=== PATIENT | female | born 1930 | race Caucasian/White ===

== ENCOUNTER 2016-05-27 04:12 | Inpatient (IN) | payer MEDICARE ==
[2016-05-27] VITALS (7 sets, daily range): BP systolic 114–175; BP diastolic 61–85; PULSE 78–97; RESP 18–21; TEMP 97.3–98.6; O2SAT 91–99
[~2016-05-27] VITALS: Ht 167.6 cm; Wt 95.3 kg
[~2016-05-27 04:12] MED LIST: ACET325 PO; ALPR.25 PO; AMBI5TAB PO; ESTR1TAB PO; HYDR-3533 PO; LOSA25TA31 PO
[2016-05-27] MEDS ORDERED: LIDOCAINE HCL 1% PF 30 ML VIAL INFIL ONE (04:30)
[2016-05-27] MEDS ORDERED: TYLETAB34 PO (04:37)
[2016-05-27] MEDS ORDERED: ESTR0.5T PO (04:37)
[2016-05-27] MEDS ORDERED: ALPR.25 PO (04:37)
[2016-05-27] MEDS ORDERED: LOSA25TA PO (04:37)
[2016-05-27] MEDS ORDERED: AMBI10TA PO (04:37)
--- NOTE | 2016-05-27 04:41 | PD ---
HPI Chief Complaint: Injury Time Seen by Provider: 04:17 Travel History International Travel<30 days: No Contact w/Intl Traveler<30days: No Traveled to known affect area: No History of Present Illness HPI The patient is a 86-year-old female who presents to the emergency department for right knee pain. The patient states she developed right knee pain on Monday. She now notes the pain is swollen, limited range of motion, worse with weightbearing, and minimally alleviated at rest. She does state there is swollen and the pain radiates from the medial aspect the lateral aspect of the knee and into the posterior aspect of the knee. She denies any trauma to the affected area. She notes mild redness and warmth of the affected area and EMS stated the patient had a low-grade fever of 100.2 prior to arrival. The patient denies any history of septic joint and denies any history of gout or pseudogout. She does note nausea and vomiting secondary to pain associated with the knee with ambulation. The patient lives at home with her . Symptoms are moderate, worsen movement, and slightly alleviated at rest. PFSH Past Medical History Anxiety: Yes Cancer: Yes (SKIN) Cardiovascular Problems: No Diabetes: No Diminished Hearing: No Endocrine: No Gastrointestinal Disorders: Yes (GERD) Genitourinary: No Hepatitis: Yes (JAUNDICE AT 10) Hiatal Hernia: Yes Hypertension: Yes Immune Disorder: No Musculoskeletal: Yes (ARTHRITIS) Neurologic: No Psychiatric: Yes (CLAUSTRAPHOBIA) Reproductive: No Respiratory: No Thyroid Disease: No Past Surgical History AICD: No Eye Surgery: Yes (BETTE. CATARACT EXTRACT.) Gynecologic Surgery: Yes (TAHBSO) Hysterectomy: Yes Joint Replacement: Yes (LEFT KNEE) Pacemaker: No Other Surgery: Yes (RIGHT SHOULDER) Social History Alcohol Use: Yes (OCC) Tobacco Use: No Substance Use: No Allergies-Medications (Allergen,Severity, Reaction): Uncoded Allergies: STATINS (Allergy, Intermediate, MUSCLE ACHES, 11/14/08) Reported Meds & Prescriptions Reported Meds & Active Scripts Active Reported Tylenol-Codeine #3 (Acetaminophen-Codeine) 300-30 mg Tab 1 Tab PO Q4H PRN Xanax (Alprazolam) 0.25 Mg Tab 0.25 Mg PO DAILY PRN Estradiol 0.5 Mg Tab 0.5 Mg PO DAILY Ambien (Zolpidem Tartrate) 10 Mg Tab 10 Mg PO HS PRN Losartan (Losartan Potassium) 25 Mg Tab 25 Mg PO DAILY Review of Systems Except as stated in HPI: all other systems reviewed are Neg General / Constitutional: No: Fever Cardiovascular: No: Chest Pain or Discomfort Respiratory: No: Shortness of Breath Gastrointestinal: Positive: Nausea, Vomiting, No: Abdominal Pain Musculoskeletal: Positive: Limited ROM, Edema, Pain Skin: No Rash Neurologic: No: Paresthesia, Sensory Disturbance Physical Exam Narrative GENERAL: Awake, alert, pleasant 86-year-old female who appears her stated age and is in no acute respiratory distress. SKIN: Warm and dry. HEAD: Atraumatic. Normocephalic. EYES: Pupils equal and round. No scleral icterus. No injection or drainage. ENT: No nasal bleeding or discharge. Mucous membranes pink and moist. NECK: Trachea midline. No JVD. CARDIOVASCULAR: Regular rate and rhythm. No murmur appreciated. RESPIRATORY: No accessory muscle use. Clear to auscultation. Breath sounds equal bilaterally. GASTROINTESTINAL: Abdomen soft, non-tender, nondistended. No rebound tenderness. MUSCULOSKELETAL: Left knee has well-healed scar. The right knee has an obvious effusion. Limited range of motion secondary to pain. Positive distal pulses. Slightly warm, but no obvious erythema. NEUROLOGICAL: Awake and alert. No obvious cranial nerve deficits. Motor grossly within normal limits. Normal speech. PSYCHIATRIC: Appropriate mood and affect; insight and judgment normal. Data Data Last Documented VS Vital Signs Date Time Temp Pulse Resp B/P Pulse Ox O2 Delivery O2 Flow Rate FiO2 05/27/16 04:22 96 18 96 Nasal Cannula 2 05/27/16 04:18 97.7 175/75 Orders Ed Poc Ultrasound (05/27/16 04:18) Lidocaine Pf 1% Inj (Xylocaine-Mpf 1% In (05/27/16 04:30) Complete Blood Count With Diff (05/27/16 04:33) Comprehensive Metabolic Panel (05/27/16 04:33) Lactic Acid (05/27/16 04:33) Blood Culture (05/27/16 04:33) Knee, Ltd (1 Or 2vws) (05/27/16 ) Synovial Fluid Crystals (05/27/16 04:33) Synovial Fluid Total Protein (05/27/16 04:33) Synovial Fl Cell Count + Diff (05/27/16 04:33) Fluid Culture And Gram Stain (05/27/16 04:33) Ondansetron Inj (Zofran Inj) (05/27/16 04:45) Morphine Inj (Morphine Inj) (05/27/16 04:45) Piperacil-Tazo 4.5 Gm Premix (Zosyn 4.5 (05/27/16 05:45) Vancomycin Inj (Vancomycin Inj) (05/27/16 05:45) Sodium Chlor 0.9% 1000 Ml Inj (Ns 1000 M (05/27/16 05:45) Admit Order (Ed Use Only) (05/27/16 06:11) Labs Laboratory Tests Test 05/27/16 05/27/16 04:30 04:45 Synovial Fluid Color STRAW Synovial Fluid Appearance MARKED Synovial Fluid WBC 920647 /MM3 Synovial Fluid RBC 41579 /MM3 Synovial Fluid Crystals NONE White Blood Count 14.6 TH/MM3 Red Blood Count 4.68 MIL/MM3 Hemoglobin 14.7 GM/DL Hematocrit 42.4 % Mean Corpuscular Volume 90.8 FL Mean Corpuscular Hemoglobin 31.3 PG Mean Corpuscular Hemoglobin 34.5 % Concent Red Cell Distribution Width 13.3 % Platelet Count 195 TH/MM3 Mean Platelet Volume 8.9 FL Neutrophils (%) (Auto) 82.4 % Lymphocytes (%) (Auto) 4.0 % Monocytes (%) (Auto) 13.5 % Eosinophils (%) (Auto) 0.0 % Basophils (%) (Auto) 0.1 % Neutrophils # (Auto) 12.0 TH/MM3 Lymphocytes # (Auto) 0.6 TH/MM3 Monocytes # (Auto) 2.0 TH/MM3 Eosinophils # (Auto) 0.0 TH/MM3 Basophils # (Auto) 0.0 TH/MM3 CBC Comment DIFF FINAL Differential Comment Sodium Level 137 MEQ/L Potassium Level 3.8 MEQ/L Chloride Level 102 MEQ/L Carbon Dioxide Level 26.5 MEQ/L Anion Gap 9 MEQ/L Blood Urea Nitrogen 16 MG/DL Creatinine 1.02 MG/DL Estimat Glomerular Filtration 52 ML/MIN Rate Random Glucose 176 MG/DL Lactic Acid Level 2.5 mmol/L Calcium Level 8.5 MG/DL Total Bilirubin 0.7 MG/DL Aspartate Amino Transf 10 U/L (AST/SGOT) Alanine Aminotransferase 19 U/L (ALT/SGPT) Alkaline Phosphatase 61 U/L Total Protein 6.9 GM/DL Albumin 3.3 GM/DL MDM Medical Decision Making Medical Screen Exam Complete: Yes Emergency Medical Condition: Yes Medical Record Reviewed: Yes Interpretation(s) Laboratory Tests Test 05/27/16 05/27/16 04:30 04:45 Synovial Fluid Color STRAW Synovial Fluid Appearance MARKED Synovial Fluid WBC 057666 /MM3 Synovial Fluid RBC 91834 /MM3 Synovial Fluid Crystals NONE White Blood Count 14.6 TH/MM3 Red Blood Count 4.68 MIL/MM3 Hemoglobin 14.7 GM/DL Hematocrit 42.4 % Mean Corpuscular Volume 90.8 FL Mean Corpuscular Hemoglobin 31.3 PG Mean Corpuscular Hemoglobin 34.5 % Concent Red Cell Distribution Width 13.3 % Platelet Count 195 TH/MM3 Mean Platelet Volume 8.9 FL Neutrophils (%) (Auto) 82.4 % Lymphocytes (%) (Auto) 4.0 % Monocytes (%) (Auto) 13.5 % Eosinophils (%) (Auto) 0.0 % Basophils (%) (Auto) 0.1 % Neutrophils # (Auto) 12.0 TH/MM3 Lymphocytes # (Auto) 0.6 TH/MM3 Monocytes # (Auto) 2.0 TH/MM3 Eosinophils # (Auto) 0.0 TH/MM3 Basophils # (Auto) 0.0 TH/MM3 CBC Comment DIFF FINAL Differential Comment Sodium Level 137 MEQ/L Potassium Level 3.8 MEQ/L Chloride Level 102 MEQ/L Carbon Dioxide Level 26.5 MEQ/L Anion Gap 9 MEQ/L Blood Urea Nitrogen 16 MG/DL Creatinine 1.02 MG/DL Estimat Glomerular Filtration 52 ML/MIN Rate Random Glucose 176 MG/DL Lactic Acid Level 2.5 mmol/L Calcium Level 8.5 MG/DL Total Bilirubin 0.7 MG/DL Aspartate Amino Transf 10 U/L (AST/SGOT) Alanine Aminotransferase 19 U/L (ALT/SGPT) Alkaline Phosphatase 61 U/L Total Protein 6.9 GM/DL Albumin 3.3 GM/DL Differential Diagnosis Differential diagnosis includes gout, pseudogout, knee effusion, hemarthrosis, septic joint, cellulitis, viral infection, fracture with effusion. Narrative Course IV was established, labs are drawn and sent, and the patient was placed on cardiac telemetry monitoring and continuous pulse ox imaging monitoring. Bedside ultrasound was performed which reveals a right knee effusion. The right knee effusion was drained, arthrocentesis, under ultrasound guidance. 10 cc of thick yellow fluid was removed. The patient tolerated the procedure there was no obvious complications. The fluid was sent off for analysis of cell ,, Gram stain, crystals, and protein. Culture was also obtained. 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 X-ray was obtained of the right knee. The patient states the orthopedic surgeon she saw for her left knee surgery was Dr. Reece. The patient's white count was 186,600, marked fluid, and no crystals visible. Therefore, a since septic knee. Patient's white count is elevated greater than 14 and lactic acid 2.5. Patient was administered IV fluids, Zosyn, vancomycin. The patient's primary physician is Dr. Mega Hannah, therefore, [facility]. Procedures Procedure Narrative An ultrasound-guided arthrocentesis of the right knee was performed using a linear probe. The area was draped and prepped, cleaned with Betadine, anesthetized 1% lidocaine, and then drained using an 18-gauge needle. 10 cc of thick yellow fluid was removed from the joint. The patient tolerated the procedure without difficulty and there was no obvious complications. Fluid was sent off for analysis. Sepsis Criteria SIRS Criteria (2 or more): Heart rate over 90, WBC > 93820, < 4000 or > 10% bands Sepsis Criteria (SIRS+source): Infect source susp/known Severe Sepsis (+one): Lactate >2 Physician Communication Physician Communication I discussed the patient with Dr. Franz who agrees with admission to Dr. Maria. Diagnosis Primary Impression: Septic joint of right knee joint Qualified Code: M00.9 - Pyogenic arthritis of right knee joint, due to unspecified organism Additional Impression: Sepsis Qualified Code: A41.9 - Sepsis, due to unspecified organism Condition: Stable Abelino Toro MD May 27, 2016 04:41
[2016-05-27] MEDS ORDERED: ONDANSETRON HCL 4 MG/2 ML VIAL IV PUSH ONE (04:45)
[2016-05-27] MEDS ORDERED: MORPHINE SULFATE 4 MG/ML INJ IV PUSH ONE (04:45)
[2016-05-27 05:07] LABS: BASOPHIL % 0.1 % (0.0-2.0); HEMATOCRIT 42.4 % (35.0-46.0); HEMO FLAGS DIFF FINAL; LYMPHOCYTE # 0.6 TH/MM3 (1.0-4.8); MEAN CELL VOLUME 90.8 FL (80.0-100.0); MEAN CORPUSCULAR HEMOGLOBIN 31.3 PG (27.0-34.0); MEAN CORPUSCULAR HGB CONC 34.5 % (32.0-36.0); MONO % 13.5 % (0.0-8.0); NEUT % 82.4 % (16.0-70.0); PLATELET COUNT 195 TH/MM3 (150-450); RED BLOOD COUNT 4.68 MIL/MM3 (4.00-5.30); RED CELL DISTRIBUTION WIDTH 13.3 % (11.6-17.2); WHITE BLOOD COUNT 14.6 TH/MM3 (4.0-11.0)
[2016-05-27 05:24] LABS: ALT (GPT) 19 U/L (10-53); ANION GAP 9 MEQ/L (5-15); AST (GOT) 10 U/L (15-37); BICARBONATE 26.5 MEQ/L (21.0-32.0); BLOOD UREA NITROGEN 16 MG/DL (7-18); CHLORIDE 102 MEQ/L (98-107); GLOMERULAR FILTRATION RATE 52 ML/MIN (>89); POTASSIUM 3.8 MEQ/L (3.5-5.1); SODIUM (NA) 137 MEQ/L (136-145)
[2016-05-27 05:26] LABS: ALKALINE PHOSPHATASE 61 U/L (45-117); TOTAL BILIRUBIN ADULT 0.7 MG/DL (0.2-1.0)
[2016-05-27 05:31] LABS: WBC, SYNOVIAL FLUID 186000 /MM3 (0-200)
[2016-05-27] MEDS ORDERED: SODIUM CHLOR 0.9% 1000 ML INJ 1,000 ML IV ONE (05:45)
[2016-05-27] MEDS ORDERED: PIPERACIL-TAZO 4.5 GM PREMIX 100 ML IV ONE (05:45)
[2016-05-27] MEDS ORDERED: VANCOMYCIN INJ 1,000 MG in SODIUM CHLOR 0.9% 250 ML INJ 250 ML IV ONE (05:45)
--- NOTE | 2016-05-27 05:59 | RADRPT ---
EXAM DATE/TIME: 05/27/2016 04:38 [facility] COMPARISON: No previous studies available for comparison. INDICATIONS : Patient complains of right anterior knee pain. MEDICAL HISTORY : None. SURGICAL HISTORY : None. ENCOUNTER: Initial ACUITY: 1 week PAIN SCORE: 10/10 LOCATION: Right Knee FINDINGS: No definite fractures, dislocations, lytic, or sclerotic lesions are seen. Small joint effusion is se en with side tricompartment osteoarthritis. CONCLUSION: Osteoarthritis and small joint effusion. Jacqueline Rhoades MD on May 27, 2016 at 5:57 Board Certified Radiologist. This report was verified electronically.
[2016-05-27] MEDS ORDERED: PIPERACIL-TAZO 3.375 GM PREMIX 50 ML IV SCH (06:15)
[2016-05-27] MEDS ORDERED: SODIUM CHLORIDE 0.9% FLUSH 5 ML FLUSH FLUSH PRN (06:15)
[2016-05-27] MEDS ORDERED: ONDANSETRON HCL 4 MG/2 ML VIAL IVP PRN (06:15)
[2016-05-27] MEDS ORDERED: NALOXONE HCL 0.4 MG/ML AMP IV PRN (06:15)
[2016-05-27] MEDS ORDERED: ACETAMINOPHEN 325 MG TAB PO PRN (06:15)
[2016-05-27] MEDS: ENOXAPARIN SODIUM 40 MG/0.4 ML SYRINGE SQ SCH (06:28)
[2016-05-27] MEDS: SODIUM CHLORIDE 0.9% FLUSH 5 ML FLUSH FLUSH SCH ×2 (08:28→22:13)
[2016-05-27] MEDS ORDERED: PILL SPLITTER OTHER PRN (08:30)
--- NOTE | 2016-05-27 09:04 | MH ---
cc: LEATHA MOISE,MAYELIN Jara MD DATE OF ADMISSION: 05/27/2016 DATE OF 1930 CHIEF COMPLAINT Severe pain right knee, nausea, fever. TRAVEL HISTORY None in the last 30 days. HISTORY OF PRESENT ILLNESS This is a pleasant 86 year-old white female who presented to the ER with severe right knee pain. She states that she has been in her usual state of health. She usually ambulates without any assistance, but Monday began noting a sharp stabbing pain to the right knee. She states she has some mild redness, swelling and warmth to the touch. The patient did have a low-grade fever of 100.2 on arrival to the emergency room. She states that within 24-hours of the knee pain beginning, she was unable to bear weight when ambulating. The patient states the pain is worse with movement and with ambulation, but she does get some slight relief when elevated. She states the pain radiates to the medial aspect of the knee from the lateral aspect and goes around to the posterior aspect of her knee. The patient has had some nausea and vomiting in the past 24-hours. She has experienced some mild shortness of breath with exertion since Monday, but states that this seems to be related to her trying to move around in her home. The patient states her appetite is good. She has had no acute weight gain or weight loss in the past year. She denies any headache. Denies any dizziness or syncope. PAST MEDICAL HISTORY 1. Hypertension 2. Hiatal hernia 3. GERD 4. Anxiety 5. Arthritis 6. Claustrophobia 7. Hepatitis (jaundice at 11) 8. Skin cancer PAST SURGICAL HISTORY 1. Bilateral cataracts 2. Total abdominal hysterectomy 3. Joint replacement left knee 4. Right shoulder surgery ALLERGIES STATINS SOCIAL HISTORY No tobacco use. Occasional wine (alcohol use). No illicit drugs. The patient is and currently lives in the home with her . HOME MEDICATIONS 1. Losartan 25 mg p.o. daily 2. Ambien 10 mg at night as needed for insomnia 3. Xanax 0.25 mg p.o. daily as needed for anxiety 4. Estradiol 0.5 mg p.o. daily 5. Acetaminophen/Tylenol 300/30 mg tab one tab every four hours as needed for pain REVIEW OF SYSTEMS A 12-point review was obtained with the positives and negatives initiated in the HPI. Please note, positive pain and myalgias with musculoskeletal. FAMILY HISTORY Heart disease PHYSICAL EXAM GENERAL: This is a pleasant 86 year-old female who is alert and oriented times four resting in the bed. She appears to be her stated age and answers questions appropriately. SKIN: Her skin is slightly pale, but warm and dry. HEAD, EYES, EARS, NOSE, AND THROAT: Atraumatic, normocephalic. Pupils are 2 mm and equal. She has no scleral icterus and no drainage. NECK: Supple. Her mucous membranes are pink and moist. She has no nasal discharge. CARDIOVASCULAR: Heart rate is regular in rate and rhythm. She has no murmurs, rubs or gallops appreciated. No pedal edema. RESPIRATORY: Lungs are essentially clear anteriorly and posteriorly with no wheezes, rales or rhonchi. Breath sounds are equal bilateral. GASTROINTESTINAL: Abdomen is obese, soft, nontender and nondistended. MUSCULOSKELETAL: She moves all extremities with purpose. Right knee is tender. Mild swelling noted especially on the lateral aspect. She does have limited motion secondary to pain in that right lower leg. Left knee moves with purpose and has a healed scar. Pulses are 2+/4+ bilateral pedal. Right knee is warm to touch. NEUROLOGIC: The patient is alert and oriented times four, a good historian. No obvious cranial nerve deficits. 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 Speech is clear and normal. PSYCHIATRIC: No acute signs of anxiety, appropriate mood and affect. Insight and judgment normal. LAB DATA Abnormal, includes a white count of 14.6, neutrophil percentage 82.4, lymphocyte auto 4, mono 13.5. Normals include hemoglobin of 14.7, hematocrit of 42.4, platelet count 195, RBC count 4.68. Chemistry includes a sodium of 137, potassium 3.8, chloride 102, carbon dioxide 26.5, anion gap 9, BUN 16, creatinine 1.02, GFR 52, glucose 176, lactic acid 2.5, calcium 8.5, total bilirubin 0.7, AST is 10, albumin 3.3. Synovium fluid from the right knee is straw colored with high WBC counts 703025, elevated RBC count 45038, elevated neutrophils 98, no crystals, 2 monocytes, no lymphocytes. Total protein is pending. Right imaging shows osteoarthritis and a small joint effusion in the right knee. ASSESSMENT AND PLAN 1. Septic joint of right knee joint including pyrogenic arthritis unknown organism. 2. Sepsis 3. Leukocytosis 4. Lactic acidosis 5. Hypertension 6. GERD 7. Anxiety disorder Our plan is to admit for observation. The patient has been started on piperacillin and vancomycin IV antibiotics. Vital signs will be q4. Due to elevated blood sugar, we will do Accu-Chek's ac and hs to monitor. The patient states that she is not a diabetic and this could be secondary to possible infection. We will monitor the patient on Telemetry, monitor her I&O's, give her a regular diet, monitor her lab levels which includes a BMP and CBC for the morning. DVT prophylaxis with Lovenox. Protonix added for GERD and her hiatal hernia even though she denies any symptoms. This will be prophylactic. I will discuss this case with Dr. Guerrero for any further orders. The patient is a full code, full aggressive care per her request. We will follow. Dictated by LILLIAN Mattson MD NICOLAS Berg/ABNER /7:53 AM /9:03 AM PT is seen & Examined d/w PT d/w Clary see H&P see Orders ID consult appreciated will f/u Mayelin Guerrero MD May 27, 2016 18:25 MTDD
[2016-05-27] MEDS: PIPERACIL-TAZO 3.375 GM PREMIX 50 ML IV SCH ×3 (11:42→23:43)
[2016-05-27] MEDS: LOSARTAN 25 MG TAB PO SCH (11:42)
[2016-05-27] MEDS: PANTOPRAZOLE SOD 40 MG DELAYED RELEASE TAB PO SCH (11:42)
[2016-05-27] MEDS: ESTRADIOL 1 MG TAB PO SCH (11:58)
--- NOTE | 2016-05-27 13:42 | HHI.IDPN ---
Note Infectious Disease Note ID consult dictated. Septic arthritis r. knee. Will follow cultures and adjust antibiotics: Continue Vancomycin and Zosyn. Vital Signs Date Time Temp Pulse Resp B/P Pulse Ox O2 Delivery O2 Flow Rate FiO2 05/27/16 07:31 94 Nasal Cannula 2 05/27/16 07:31 98.6 84 21 146/66 94 Nasal Cannula 2 05/27/16 04:22 96 18 96 Nasal Cannula 2 05/27/16 04:18 97.7 97 18 175/75 93 Laboratory Tests Test 05/27/16 05/27/16 04:30 04:45 Synovial Fluid Color STRAW Synovial Fluid Appearance MARKED Synovial Fluid WBC 495541 /MM3 Synovial Fluid RBC 86938 /MM3 Synovial Fluid Neutrophils 98 % Synovial Fluid Lymphocytes 0 % Synovial Fluid Monocytes 2 % Synovial Fluid Crystals NONE White Blood Count 14.6 TH/MM3 Red Blood Count 4.68 MIL/MM3 Hemoglobin 14.7 GM/DL Hematocrit 42.4 % Mean Corpuscular Volume 90.8 FL Mean Corpuscular Hemoglobin 31.3 PG Mean Corpuscular Hemoglobin 34.5 % Concent Red Cell Distribution Width 13.3 % Platelet Count 195 TH/MM3 Mean Platelet Volume 8.9 FL Neutrophils (%) (Auto) 82.4 % Lymphocytes (%) (Auto) 4.0 % Monocytes (%) (Auto) 13.5 % Eosinophils (%) (Auto) 0.0 % Basophils (%) (Auto) 0.1 % Neutrophils # (Auto) 12.0 TH/MM3 Lymphocytes # (Auto) 0.6 TH/MM3 Monocytes # (Auto) 2.0 TH/MM3 Eosinophils # (Auto) 0.0 TH/MM3 Basophils # (Auto) 0.0 TH/MM3 CBC Comment DIFF FINAL Differential Comment Sodium Level 137 MEQ/L Potassium Level 3.8 MEQ/L Chloride Level 102 MEQ/L Carbon Dioxide Level 26.5 MEQ/L Anion Gap 9 MEQ/L Blood Urea Nitrogen 16 MG/DL Creatinine 1.02 MG/DL Estimat Glomerular Filtration 52 ML/MIN Rate Random Glucose 176 MG/DL Lactic Acid Level 2.5 mmol/L Calcium Level 8.5 MG/DL Total Bilirubin 0.7 MG/DL Aspartate Amino Transf 10 U/L (AST/SGOT) Alanine Aminotransferase 19 U/L (ALT/SGPT) Alkaline Phosphatase 61 U/L Total Protein 6.9 GM/DL Albumin 3.3 GM/DL Dr Eva Scott on ID call this weekend for questions. Hakeem Frey MD May 27, 2016 13:42
--- NOTE | 2016-05-27 14:48 | MB ---
cc: KHADIJAH MOSHER MD,MAYELIN Jara MD DATE OF CONSULTATION: 05/27/2016 REASON FOR CONSULTATION Septic arthritis of the knee. HISTORY OF PRESENT ILLNESS This is an 86-year-old white female who presented to the emergency department with pain in the right knee. The patient reports that she developed the sudden onset of pain in the right knee two days ago. Initially it was a 7/10 when she first noticed it. She started using a walker to ambulate because she was worried that the pain may cause problems with falling. She subsequently developed worsening pain which she says was about a 10/10 and the knee felt warm and noticed that it was swollen. She also developed chills and felt warm yesterday and she was having nausea as well. She was evaluated in the emergency department and fluid was removed from the knee and the white count in the fluid revealed 186,000 cells with 98% neutrophils. Her white blood cell count is elevated at 14.6. She continues to feel discomfort in the right knee at this time. Blood cultures were taken and culture of the synovial fluid is pending. The fluid Gram stain showed many white cells but no organisms. The patient denies other symptoms. She denies trauma to the knee. She did not notice any bruising of the knee. She has a history of osteoarthritis in both knees and had a left knee replacement in 2013. PAST MEDICAL HISTORY 1. Hypertension. 2. Gastroesophageal reflux disease. 3. Arthritis. 4. Anxiety. 5. Hiatal hernia. 6. Hepatitis. 7. Skin cancer. 8. History of left knee replacement in 2013. 9. Bilateral cataracts. 10. Total abdominal hysterectomy. 11. Right shoulder surgery. ALLERGIES STATINS. MEDICATIONS 1. Piperacillin/tazobactam. 2. Vancomycin. 3. Protonix. 4. Estradiol. 5. Cozaar. 6. Protonix. 7. Lovenox. SOCIAL HISTORY The patient is . No tobacco use. No alcohol use. No illicit drugs. FAMILY HISTORY Noncontributory. REVIEW OF SYSTEMS Pertinent as mentioned above, otherwise negative. PHYSICAL EXAMINATION GENERAL: A moderately obese female who is in no acute distress. She is awake, alert and oriented. VITAL SIGNS: Temperature 98.6, BP 146/66, respirations 21, heart rate 84. HEENT: Head is atraumatic. Extraocular movements grossly intact. Nose no bleeding or swelling. Oropharynx no visible lesions. Moist mucosa. NECK: Supple without adenopathy. No swelling. LUNGS: Clear breath sounds bilateral. HEART: Regular rate and rhythm. No murmurs, rubs or gallops. ABDOMEN: Bowel sounds present, soft, no tenderness. No hepatosplenomegaly. RECTAL: Not performed. EXTREMITIES: The right knee is extremely warm and tender on palpation. There is mild swelling. No erythema. No bruising of the skin. The left knee has a surgical scar and appears intact and without any signs of infection. No clubbing or cyanosis or edema of the extremities. NEUROLOGIC: Nonfocal. PSYCHIATRIC: Patient calm and cooperative. LABORATORY DATA WBC 14.6, platelet count 195, hemoglobin 14.7. Creatinine 1.02, BUN 16, estimated GFR 52, sodium 137. IMPRESSION 1. Septic arthritis of the left knee. 2. Leukocytosis secondary to #1. 3. Possibly acute kidney disease. RECOMMENDATION: 1. Continue Vancomycin. 2. Continue Zosyn. 3. Monitor blood culture. 4. Monitor synovial fluid culture. Thank you for this consultation. The patient's progress will be monitored and the cultures will be followed and further recommendations will be given upon follow-up. Khadijah Mosher MD FD/EMANUEL /1:34 PM /2:37 PM [facility]
--- NOTE | 2016-05-27 18:25 | HHI.PR ---
Objective Objective Results - Vital Signs Date Time Temp Pulse Resp B/P Pulse Ox O2 Delivery O2 Flow Rate FiO2 05/27/16 18:17 Nasal Cannula 2.00 05/27/16 18:09 149/61 05/27/16 17:09 Room Air 05/27/16 17:09 78 18 114/85 93 Room Air 05/27/16 07:31 94 Nasal Cannula 2 05/27/16 07:31 98.6 84 21 146/66 94 Nasal Cannula 2 05/27/16 04:22 96 18 96 Nasal Cannula 2 05/27/16 04:18 97.7 97 18 175/75 93 I/O 05/26/16 05/26/16 05/26/16 05/27/16 05/27/16 05/27/16 07:00 15:00 23:00 07:00 15:00 23:00 Intake Total 600 ml Balance 600 ml Intake Oral 600 ml # Voids 1 Result Diagram: 05/27/16 0445 05/27/16 0445 Other Results Laboratory Tests Test 05/27/16 05/27/16 04:30 04:45 Synovial Fluid Color STRAW Synovial Fluid Appearance MARKED Synovial Fluid WBC 254081 Synovial Fluid RBC 04752 Synovial Fluid Neutrophils 98 Synovial Fluid Lymphocytes 0 Synovial Fluid Monocytes 2 Synovial Fluid Crystals NONE White Blood Count 14.6 Red Blood Count 4.68 Hemoglobin 14.7 Hematocrit 42.4 Mean Corpuscular Volume 90.8 Mean Corpuscular Hemoglobin 31.3 Mean Corpuscular Hemoglobin 34.5 Concent Red Cell Distribution Width 13.3 Platelet Count 195 Mean Platelet Volume 8.9 Neutrophils (%) (Auto) 82.4 Lymphocytes (%) (Auto) 4.0 Monocytes (%) (Auto) 13.5 Eosinophils (%) (Auto) 0.0 Basophils (%) (Auto) 0.1 Neutrophils # (Auto) 12.0 Lymphocytes # (Auto) 0.6 Monocytes # (Auto) 2.0 Eosinophils # (Auto) 0.0 Basophils # (Auto) 0.0 CBC Comment DIFF FINAL Differential Comment Sodium Level 137 Potassium Level 3.8 Chloride Level 102 Carbon Dioxide Level 26.5 Anion Gap 9 Blood Urea Nitrogen 16 Creatinine 1.02 Estimat Glomerular Filtration 52 Rate Random Glucose 176 Lactic Acid Level 2.5 Calcium Level 8.5 Total Bilirubin 0.7 Aspartate Amino Transf 10 (AST/SGOT) Alanine Aminotransferase 19 (ALT/SGPT) Alkaline Phosphatase 61 Total Protein 6.9 Albumin 3.3 Date/Time Procedure Status Source Growth 05/27/16 04:45 Aerobic Blood Culture Received Blood Peripheral Pending 05/27/16 04:45 Anaerobic Blood Culture Received Blood Peripheral Pending 05/27/16 04:30 Gram Stain - Final Resulted Fluid Synovial Fluid 05/27/16 04:30 Body Fluid Culture Resulted Fluid Synovial Fluid Pending Physical Exam Physical Exam PT is seen & Examined d/w PT d/w Clary see H&P see Orders ID consult appreciated will f/u Ellyn Guerrero MD May 27, 2016 18:25
[2016-05-27] MEDS: VANCOMYCIN INJ 1,000 MG in SODIUM CHLOR 0.9% 250 ML INJ 250 ML IV SCH (20:53)
[2016-05-28] VITALS: BP 147/64; PULSE 78; RESP 18; TEMP 97.9; O2SAT 94
[2016-05-28] MEDS ORDERED: ZOLPIDEM TARTRATE 10 MG TAB PO SCH (00:45)
[2016-05-28] MEDS ORDERED: ACETAMINOPHEN/HYDROcodone 325 MG/5 MG TAB PO PRN (00:45)
[2016-05-28 04:00] VITALS: BP 137/60; PULSE 72; RESP 18; TEMP 98.8; O2SAT 90
[2016-05-28] MEDS: ENOXAPARIN SODIUM 40 MG/0.4 ML SYRINGE SQ SCH (05:45)
[2016-05-28] MEDS: PIPERACIL-TAZO 3.375 GM PREMIX 50 ML IV SCH ×4 (05:45→23:26)
[2016-05-28 08:00] VITALS: BP 141/61; PULSE 75; RESP 17; TEMP 96.6; O2SAT 96
[2016-05-28 09:20] LABS: AUTOMATED NEUTROPHIL # 9.5 TH/MM3 (1.8-7.7); BASOPHIL % 0.3 % (0.0-2.0); EOSINOPHIL # 0.1 TH/MM3 (0-0.4); EOSINOPHIL % 0.8 % (0.0-4.0); HEMATOCRIT 38.4 % (35.0-46.0); HEMO FLAGS DIFF FINAL; LYMPH % 8.8 % (9.0-44.0); LYMPHOCYTE # 1.1 TH/MM3 (1.0-4.8); MEAN CELL VOLUME 92.6 FL (80.0-100.0); MEAN CORPUSCULAR HGB CONC 33.5 % (32.0-36.0); MONO % 12.6 % (0.0-8.0); NEUT % 77.5 % (16.0-70.0); PLATELET COUNT 175 TH/MM3 (150-450); RED BLOOD COUNT 4.15 MIL/MM3 (4.00-5.30); RED CELL DISTRIBUTION WIDTH 13.6 % (11.6-17.2); WHITE BLOOD COUNT 12.2 TH/MM3 (4.0-11.0)
[2016-05-28] MEDS: PANTOPRAZOLE SOD 40 MG DELAYED RELEASE TAB PO SCH (09:26)
[2016-05-28] MEDS: LOSARTAN 25 MG TAB PO SCH (09:27)
[2016-05-28] MEDS: SODIUM CHLORIDE 0.9% FLUSH 5 ML FLUSH FLUSH SCH ×2 (09:27→21:30)
[2016-05-28] MEDS: ESTRADIOL 1 MG TAB PO SCH (09:27)
[2016-05-28] MEDS: VANCOMYCIN INJ 1,000 MG in SODIUM CHLOR 0.9% 250 ML INJ 250 ML IV SCH ×2 (09:27→21:30)
[2016-05-28 09:35] LABS: BICARBONATE 27.7 MEQ/L (21.0-32.0); POTASSIUM 3.7 MEQ/L (3.5-5.1)
--- NOTE | 2016-05-28 11:54 | HHI.PR ---
Subjective History of Present Illness Feels better Right knee pain is improving Able to bend her right knee now No fever or chills No nausea or vomiting Appetite is improving Denies chest pain Denies shortness of breath Complain of constipation Offers no other complaints Significant other at bedside Vitals/Results Intake & Output 05/27/16 05/27/16 05/28/16 15:00 23:00 07:00 Intake Total 840 ml 240 ml Balance 840 ml 240 ml Intake Oral 840 ml 240 ml # Voids 4 2 Vital Signs Vital Signs Date Time Temp Pulse Resp B/P Pulse Ox O2 Delivery O2 Flow Rate FiO2 05/28/16 08:00 96.6 75 17 141/61 96 05/28/16 04:00 98.8 72 18 137/60 90 05/28/16 00:00 97.9 78 18 147/64 94 05/27/16 22:16 97.3 82 18 147/69 91 05/27/16 21:36 97 Room Air 05/27/16 20:58 88 18 147/63 05/27/16 19:25 81 18 144/77 99 05/27/16 18:17 Nasal Cannula 2.00 05/27/16 18:09 149/61 05/27/16 17:09 Room Air 05/27/16 17:09 78 18 114/85 93 Room Air CBC/BMP: 05/28/16 0820 05/28/16 0820 Lab Results Laboratory Tests Test 05/28/16 08:20 White Blood Count 12.2 TH/MM3 Red Blood Count 4.15 MIL/MM3 Hemoglobin 12.9 GM/DL Hematocrit 38.4 % Mean Corpuscular Volume 92.6 FL Mean Corpuscular Hemoglobin 31.0 PG Mean Corpuscular Hemoglobin 33.5 % Concent Red Cell Distribution Width 13.6 % Platelet Count 175 TH/MM3 Mean Platelet Volume 9.7 FL Neutrophils (%) (Auto) 77.5 % Lymphocytes (%) (Auto) 8.8 % Monocytes (%) (Auto) 12.6 % Eosinophils (%) (Auto) 0.8 % Basophils (%) (Auto) 0.3 % Neutrophils # (Auto) 9.5 TH/MM3 Lymphocytes # (Auto) 1.1 TH/MM3 Monocytes # (Auto) 1.5 TH/MM3 Eosinophils # (Auto) 0.1 TH/MM3 Basophils # (Auto) 0.0 TH/MM3 CBC Comment DIFF FINAL Differential Comment Sodium Level 140 MEQ/L Potassium Level 3.7 MEQ/L Chloride Level 105 MEQ/L Carbon Dioxide Level 27.7 MEQ/L Anion Gap 7 MEQ/L Blood Urea Nitrogen 13 MG/DL Creatinine 0.88 MG/DL Estimat Glomerular Filtration 61 ML/MIN Rate Random Glucose 94 MG/DL Calcium Level 8.0 MG/DL Physical Exam General General Appearance: No Acute Distress, Comfortable, Obese Eyes Eye Exam: Pupils Equal, Sclera White, Extraocular Movement Intact Ears & Nose Ears & Nose Exam: Nasal Mucosa [place] Extension Throat Throat Exam: Oral Mucosa [place] Extension & Moist Neck Neck Exam: Neck Supple, Trachea Midline Pulmonary Resp Exam: Clear Bilaterally, Breath Sounds Equal Cardiology CV Exam: Regular, Normal Sinus Rhythm Gastrointestinal/Abdomen GI Exam: Soft, Non-Tender, Bowel Sounds Present Musculoskeletal MS Remarks Decrease swelling right knee, decrease tenderness, better range of motion Integumentary Skin Exam: Warm, Dry Extremeties Extremities Exam: No Edema, Pedal Pulses Palpable Neurologic Neuro Exam: Alert, Awake, Oriented, Speech Clear, Moving All Extremities Psychiatric Psych Exam: Appropriate Responses Assessment/Plan Assessment/Plan ASSESSMENT AND PLAN 1. Septic joint of right knee joint including pyogenic arthritis unknown organism. 2. Sepsis 3. Leukocytosis 4. Lactic acidosis 5. Hypertension 6. GERD 7. Anxiety disorder Empiric IV abx Joint fluid c/s ID input appreciated Will obtain orthopedic consult, patient might need irrigation of her knee IVF IV analgesic BP control Diabetic diet Accu-Chek's ac and hs to monitor. DVT prophylaxis with Lovenox. Protonix for GERD & GI prophylaxis PT eval; Ellyn Guerrero MD May 28, 2016 11:54
[2016-05-28 12:06] VITALS: BP 131/63; PULSE 74; RESP 18; TEMP 97.5; O2SAT 95
[2016-05-28] MEDS ORDERED: POLYETHYLENE GLYCOL 17 GM PKG PO PRN (12:30)
--- NOTE | 2016-05-28 15:31 | PD.CONS ---
cc: Mega Hannah DO; Maria M Reece MD (Charles) HPI Service Orthopedic Surgeons Consult Requested By Primary Care Physician Mega Hannah DO Admission Diagnosis septic right knee joint, sepsis Diagnoses: Chief Complaint: Right knee pain. History of Present Illness This 86 year old woman, who is well known to me, began having right knee pain, last Monday (05/25/2016). She had pain and swelling progressing over the next 2 days that, after a fall at home, she was brought by ambulance to [facility] ED in the construction [employer] hours of Monday (05/27/2016). When seen in the ED, she had an arthrocentesis guided by ultrasound with a return of purulent material. She was then started on antibiotic therapy and admitted under the care of MD Clinton. In addition to the antibiotics, an infectious disease consultation was obtained. I received this consultation just over an hour ago. The patient relates that the pain that she had earlier was very bad. She had swelling in the knee with marked loss of motion and extreme pain on motion. Today, however, she has much less pain and is able to move the knee through a largely pain free arc of motion. The left knee that I replaced on 06/24/2013 remains comfortable and nontender. Past Family Social History Allergies: Uncoded Allergies: STATINS (Allergy, Intermediate, MUSCLE ACHES, 11/14/08) Active Ordered Medications Current Medications Medications (Trade) Dose Ordered Sig/Syeda Route Start Time Stop Time Status Last Admin (NS Flush) 2 ml UNSCH PRN FLUSH 05/27/16 06:15 (NS Flush) 2 ml BID FLUSH 05/27/16 09:00 05/28/16 09:27 (Tylenol) 650 mg Q4H PRN PO 05/27/16 06:15 (Zofran Inj) 4 mg Q6H PRN IVP 05/27/16 06:15 (Lovenox Inj) 40 mg Q24H SQ 05/27/16 06:15 05/28/16 05:45 Naloxone HCl 0.4 mg 0.4 mg UNSCH PRN IV 05/27/16 06:15 Vancomycin HCl 1000 mg/Sodium Chloride 250 ml @ 250 mls/hr Q12H IV 05/27/16 20:00 05/28/16 09:27 (Zosyn 3.375 Gm Premix) 50 ml @ 100 mls/hr Q6H IV 05/27/16 12:00 05/28/16 12:04 (Estradiol) 0.5 mg DAILY PO 05/27/16 09:00 05/28/16 09:27 (Cozaar) 25 mg DAILY PO 05/27/16 09:00 05/28/16 09:27 (Protonix) 40 mg DAILY PO 05/27/16 09:00 05/28/16 09:26 (Pill Splitter) 1 ea UNSCH PRN OTHER 05/27/16 08:30 (Ambien) 10 mg HS PRN PO 05/28/16 00:45 (Maddock 5-325 Mg) 1 tab Q6H PRN PO 05/28/16 00:45 (Colace) 100 mg BID PO 05/28/16 21:00 (Miralax) 17 gm DAILY PRN PO 05/28/16 12:30 Reported Meds & Active Scripts Active Reported Tylenol-Codeine #3 (Acetaminophen-Codeine) 300-30 mg Tab 1 Tab PO Q4H PRN Xanax (Alprazolam) 0.25 Mg Tab 0.25 Mg PO DAILY PRN Estradiol 0.5 Mg Tab 0.5 Mg PO DAILY Ambien (Zolpidem Tartrate) 10 Mg Tab 10 Mg PO HS PRN Losartan (Losartan Potassium) 25 Mg Tab 25 Mg PO DAILY Physical Exam Vital Signs Vital Signs Date Time Temp Pulse Resp B/P Pulse Ox O2 Delivery O2 Flow Rate FiO2 05/28/16 12:06 97.5 74 18 131/63 95 05/28/16 08:00 96.6 75 17 141/61 96 05/28/16 04:00 98.8 72 18 137/60 90 05/28/16 00:00 97.9 78 18 147/64 94 05/27/16 22:16 97.3 82 18 147/69 91 05/27/16 21:36 97 Room Air 05/27/16 20:58 88 18 147/63 05/27/16 19:25 81 18 144/77 99 05/27/16 18:17 Nasal Cannula 2.00 05/27/16 18:09 149/61 05/27/16 17:09 Room Air 05/27/16 17:09 78 18 114/85 93 Room Air *She has remained afebrile throughout the hospitalization. Physical Exam The right knee has relatively normal alignment and appearance. There is no significant swelling and no erythema. There is a trace effusion. There is no tenderness on active or passive range of motion (ROM) at this time. The ROM is 0 to 125 degrees with some crepitation and no tenderness. Pulses are normal. The neurovascular status is intact. The skin is intact. Laboratory Laboratory Tests Test 05/27/16 05/27/16 05/28/16 04:30 04:45 08:20 Synovial Fluid Appearance MARKED (CLEAR) Synovial Fluid WBC 883411 /MM3 (0-200) Synovial Fluid RBC 63692 /MM3 (0-0) Synovial Fluid Neutrophils 98 % (0-25) White Blood Count 14.6 TH/MM3 12.2 TH/MM3 (4.0-11.0) (4.0-11.0) Neutrophils (%) (Auto) 82.4 % 77.5 % (16.0-70.0) (16.0-70.0) Lymphocytes (%) (Auto) 4.0 % 8.8 % (9.0-44.0) (9.0-44.0) Monocytes (%) (Auto) 13.5 % 12.6 % (0.0-8.0) (0.0-8.0) Neutrophils # (Auto) 12.0 TH/MM3 9.5 TH/MM3 (1.8-7.7) (1.8-7.7) Lymphocytes # (Auto) 0.6 TH/MM3 (1.0-4.8) Monocytes # (Auto) 2.0 TH/MM3 1.5 TH/MM3 (0-0.9) (0-0.9) Creatinine 1.02 MG/DL (0.50-1.00) Estimat Glomerular Filtration 52 ML/MIN (>89) 61 ML/MIN (>89) Rate Random Glucose 176 MG/DL (74-106) Lactic Acid Level 2.5 mmol/L (0.4-2.0) Aspartate Amino Transf 10 U/L (15-37) (AST/SGOT) Albumin 3.3 GM/DL (3.4-5.0) Calcium Level 8.0 MG/DL (8.5-10.1) Laboratory Tests Test 05/28/16 08:20 White Blood Count 12.2 Red Blood Count 4.15 Hemoglobin 12.9 Hematocrit 38.4 Mean Corpuscular Volume 92.6 Mean Corpuscular Hemoglobin 31.0 Mean Corpuscular Hemoglobin 33.5 Concent Red Cell Distribution Width 13.6 Platelet Count 175 Mean Platelet Volume 9.7 Neutrophils (%) (Auto) 77.5 Lymphocytes (%) (Auto) 8.8 Monocytes (%) (Auto) 12.6 Eosinophils (%) (Auto) 0.8 Basophils (%) (Auto) 0.3 Neutrophils # (Auto) 9.5 Lymphocytes # (Auto) 1.1 Monocytes # (Auto) 1.5 Eosinophils # (Auto) 0.1 Basophils # (Auto) 0.0 CBC Comment DIFF FINAL Differential Comment Sodium Level 140 Potassium Level 3.7 Chloride Level 105 Carbon Dioxide Level 27.7 Anion Gap 7 Blood Urea Nitrogen 13 Creatinine 0.88 Estimat Glomerular Filtration 61 Rate Random Glucose 94 Calcium Level 8.0 Date/Time Procedure Status Source Growth 05/27/16 04:45 Aerobic Blood Culture - Preliminary Resulted Blood Peripheral NO GROWTH IN 1 DAY 05/27/16 04:45 Anaerobic Blood Culture - Preliminary Resulted Blood Peripheral NO GROWTH IN 1 DAY 05/27/16 04:30 Gram Stain - Final Resulted Fluid Synovial Fluid 05/27/16 04:30 Body Fluid Culture - Preliminary Resulted Fluid Synovial Fluid NO GROWTH IN 24 HOURS. Result Diagram: 05/28/1681905/28/16819 Imaging The right knee x-ray shows mild arthritic changes with small tricompartmental osteophytes, a minor effusion and good preservation of the joint spaces on these recumbent images. Last 72 hours Impressions Knee X-Ray 05/27/16 0000 Signed Impressions: Service Date/Time: Friday, May 27, 2016 04:38 - CONCLUSION: Osteoarthritis and small joint effusion. Jacqueline Rhoades MD Course She has remained afebrile throughout the hospitalization. Assessment & Plan Ortho Post Op Day #: 0 Problem List: (1) Pyogenic bacterial arthritis of right knee Plan: See below: Assessment and Plan Thank you for consulting me to assist in the care of this patient who is well known to me. If I had seen her when she was admitted with the findings that she reports that she had and with the laboratory finding that she had from the aspiration, i am certain that I would have taken her to the OR that day and debrided the knee arthroscopically. She is fortunate to have responded so well to the antibiotics and the care that you have rendered. I the improved condition that I have witnessed this afternoon, I would be hard pressed to recommend an operation. Since she continues to improve without surgery, I suggest that we continue the current treatment. If she has a relapse or her condition worsens, then a surgical approach would be recommended. I shall continue to follow this very pleasant woman with you. Maria M Reece MD (Charles) May 28, 2016 15:31
[2016-05-28 16:19] VITALS: BP 122/57; PULSE 85; RESP 17; TEMP 96.7; O2SAT 93
[2016-05-28 21:00] VITALS: BP 128/62; PULSE 77; RESP 19; TEMP 98; O2SAT 93
[2016-05-28] MEDS: DOCUSATE SODIUM 100 MG CAP PO SCH (21:29)
[2016-05-28] MEDS: ZOLPIDEM TARTRATE 10 MG TAB PO PRN (21:29)
[2016-05-29] VITALS (9 sets, daily range): BP systolic 128–152; BP diastolic 59–94; PULSE 75–81; RESP 18–20; TEMP 96.4–98.3; O2SAT 93–98
[2016-05-29] MEDS: ENOXAPARIN SODIUM 40 MG/0.4 ML SYRINGE SQ SCH (05:46)
[2016-05-29] MEDS: PIPERACIL-TAZO 3.375 GM PREMIX 50 ML IV SCH ×3 (05:47→18:10)
--- NOTE | 2016-05-29 09:15 | PD.ORT.PN ---
Subjective Post Op Day #: 0 Subjective Remarks She has no pain at this time. Her knee feels good. Objective Vitals Vital Signs Date Time Temp Pulse Resp B/P Pulse Ox O2 Delivery O2 Flow Rate FiO2 05/29/16 08:00 96.4 78 20 152/66 95 05/29/16 06:09 80 05/29/16 04:00 97.6 80 18 132/62 93 05/29/16 00:11 98.3 77 18 128/89 98 05/28/16 21:00 98.0 77 19 128/62 93 05/28/16 16:19 96.7 85 17 122/57 93 05/28/16 12:06 97.5 74 18 131/63 95 I/O 05/28/16 05/28/16 05/28/16 05/29/16 05/29/16 05/29/16 07:00 15:00 23:00 07:00 15:00 23:00 Intake Total 240 ml 715 ml 60 ml Balance 240 ml 715 ml 60 ml Intake Oral 240 ml 715 ml 60 ml # Voids 2 5 3 # Bowel Movements 0 She has been afebrile for the entire hospitalization. Result Diagram: 05/28/16 0820 05/28/16 0820 Other Results Microbiology Date/Time Procedure Status Source Growth 05/27/16 04:30 Gram Stain - Final Resulted Fluid Synovial Fluid 05/27/16 04:30 Body Fluid Culture - Preliminary Resulted Fluid Synovial Fluid NO GROWTH IN 48 HOURS. 05/27/16 04:40 Aerobic Blood Culture - Preliminary Resulted Blood Peripheral NO GROWTH IN 1 DAY 05/27/16 04:40 Anaerobic Blood Culture - Preliminary Resulted Blood Peripheral NO GROWTH IN 1 DAY 05/27/16 04:45 Aerobic Blood Culture - Preliminary Resulted Blood Peripheral NO GROWTH IN 1 DAY 05/27/16 04:45 Anaerobic Blood Culture - Preliminary Resulted Blood Peripheral NO GROWTH IN 1 DAY Imaging Last 72 hours Impressions Knee X-Ray 05/27/16 0000 Signed Impressions: Service Date/Time: Friday, May 27, 2016 04:38 - CONCLUSION: Osteoarthritis and small joint effusion. Jacqueline Rhoades MD Objective Remarks The ROM of the knee is 0 degrees extension to 140 degrees of flexion, without any pain. There is no erythema, induration or effusion. There is no focal tenderness. Assessment & Plan Ortho Post Op Day #: 0 Problem List: (1) Pyogenic bacterial arthritis of right knee Plan: Continue the same treatment. Continue antibiotics per ID. Assessment and Plan She is fortunate to have continued to respond so well to the antibiotics and the care that you have rendered. Considering the improved condition that I have witnessed this morning, I would still be hard pressed to recommend an operation. Since she continues to improve without surgery, I suggest that we continue the current treatment. If she has a relapse or her condition worsens, then a surgical approach would be recommended. I shall continue to follow this very pleasant woman with you. I have allowed her to be OOB and have ordered PT. Maria M Reece MD (Charles) May 29, 2016 09:15
[2016-05-29] MEDS: ESTRADIOL 1 MG TAB PO SCH (09:55)
[2016-05-29] MEDS: DOCUSATE SODIUM 100 MG CAP PO SCH ×2 (09:55→21:00)
[2016-05-29] MEDS: SODIUM CHLORIDE 0.9% FLUSH 5 ML FLUSH FLUSH SCH ×2 (09:55→21:53)
[2016-05-29] MEDS: PANTOPRAZOLE SOD 40 MG DELAYED RELEASE TAB PO SCH (09:55)
[2016-05-29] MEDS: VANCOMYCIN INJ 1,000 MG in SODIUM CHLOR 0.9% 250 ML INJ 250 ML IV SCH ×2 (09:55→21:52)
[2016-05-29] MEDS: LOSARTAN 25 MG TAB PO SCH (09:57)
--- NOTE | 2016-05-29 11:55 | HHI.PR ---
Subjective History of Present Illness No chest pain No SOB mild generalized weakness rt. leg/knee Appetite good No nausea/vomiting No headache in Hospital Day: 2 Subjective Remarks I'm doing ok. I'm trying to move around some. (Clary Guevara) Review of Systems Constitutional Constitutional: Weakness Constitutional Remarks 10 point ROS done. Unremarkable systems except for weakness /rt. knee.Mild edema and rt. knee pain (Clary Guevara) Musculoskeletal MS: Discomfort/Pain MS Remarks right knee. (Clary Guevara) Integumentary Skin Remarks bandaid on rt. knee. S/P fluid drainage for dx. (Clary Guevara) Vitals/Results Intake & Output 05/28/16 05/28/16 05/29/16 15:00 23:00 07:00 Intake Total 715 ml 60 ml Balance 715 ml 60 ml Intake Oral 715 ml 60 ml # Voids 5 3 # Bowel Movements 0 Vital Signs Vital Signs Date Time Temp Pulse Resp B/P Pulse Ox O2 Delivery O2 Flow Rate FiO2 05/29/16 09:20 93 21 05/29/16 08:00 96.4 78 20 152/66 95 05/29/16 06:09 80 05/29/16 04:00 97.6 80 18 132/62 93 05/29/16 00:11 98.3 77 18 128/89 98 05/28/16 21:00 98.0 77 19 128/62 93 05/28/16 16:19 96.7 85 17 122/57 93 05/28/16 12:06 97.5 74 18 131/63 95 (Clary Guevara) CBC/BMP: 05/28/16 0820 05/28/16 0820 Physical Exam General General Appearance: No Acute Distress, Comfortable, Obese (Clary Guevara) Eyes Eye Exam: Pupils Equal, Sclera White, Extraocular Movement Intact (Clary Guevara) Ears & Nose Ears & Nose Exam: Nasal Mucosa [place] (Clary Guevara) Throat Throat Exam: Oral Mucosa [place] & Moist (Clary Guevara) Neck Neck Exam: Neck Supple, Trachea Midline (Clary Guevara) Pulmonary Resp Exam: Clear Bilaterally, Breath Sounds Equal (Clary Guevara) Cardiology CV Exam: Regular, Normal Sinus Rhythm (Clary Guevara) Gastrointestinal/Abdomen GI Exam: Soft, Non-Tender, Bowel Sounds Present (Clary Guevara) Integumentary Skin Exam: Warm, Dry (Clary Guevara) Extremeties Extremities Exam: No Edema, Pedal Pulses Palpable (Clary Guevara) Neurologic Neuro Exam: Alert, Awake, Oriented, Speech Clear, Moving All Extremities ( Clary Guevara) Psychiatric Psych Exam: Appropriate Responses (Clary Guevara) Assessment/Plan Assessment/Plan ASSESSMENT AND PLAN 1. Septic joint of right knee joint including pyogenic arthritis unknown organism. 2. Sepsis 3. Leukocytosis 4. Lactic acidosis 5. Hypertension 6. GERD 7. Anxiety disorder Empiric IV abx Joint fluid c/s ID input appreciated Will obtain orthopedic consult, patient might need irrigation of her knee IVF IV analgesic BP control Diabetic diet Accu-Chek's ac and hs to monitor. DVT prophylaxis with Lovenox. Protonix for GERD & GI prophylaxis PT eval; Ambulated pt. for strengthing. OOB up in chair. telemetry SR 70s. Discussed Condition Comment D/W nurse D/W Dr. Guerrero, pt seen on his behalf, D/W patient and . (Clary Guevara) Assessment/Plan PT is seen & Examined d/w PT & her appreciate ortho input d/w Dr Scott cont current tx d/c home in am if ok w ID will f/u (Ellyn Guerrero MD) Clary Guevara May 29, 2016 11:55 Ellyn Guerrero MD May 29, 2016 17:07
[2016-05-29] MEDS: ZOLPIDEM TARTRATE 10 MG TAB PO PRN (21:51)
[2016-05-30] VITALS: BP 138/67; PULSE 77; RESP 20; TEMP 96.7; O2SAT 94
[2016-05-30] MEDS: PIPERACIL-TAZO 3.375 GM PREMIX 50 ML IV SCH ×2 (00:45→06:00)
[2016-05-30 06:24] VITALS: BP 144/68; PULSE 77; RESP 18; TEMP 97.4; O2SAT 91
[2016-05-30] MEDS: ENOXAPARIN SODIUM 40 MG/0.4 ML SYRINGE SQ SCH (06:35)
[2016-05-30 08:00] VITALS: BP 131/76; PULSE 76; RESP 19; TEMP 96.6; O2SAT 94
[2016-05-30] MEDS: SODIUM CHLORIDE 0.9% FLUSH 5 ML FLUSH FLUSH SCH (09:09)
[2016-05-30] MEDS: VANCOMYCIN INJ 1,000 MG in SODIUM CHLOR 0.9% 250 ML INJ 250 ML IV SCH (09:09)
[2016-05-30] MEDS: PANTOPRAZOLE SOD 40 MG DELAYED RELEASE TAB PO SCH (09:09)
[2016-05-30] MEDS: DOCUSATE SODIUM 100 MG CAP PO SCH (09:09)
[2016-05-30] MEDS: LOSARTAN 25 MG TAB PO SCH (09:10)
[2016-05-30] MEDS: ESTRADIOL 1 MG TAB PO SCH (09:10)
--- NOTE | 2016-05-30 11:36 | PD.ORT.PN ---
Subjective Post Op Day #: 0 Subjective Remarks She has no pain at this time. Her knee still feels good. Distance Walked 180 feet with PT. Objective Vitals Vital Signs Date Time Temp Pulse Resp B/P Pulse Ox O2 Delivery O2 Flow Rate FiO2 05/30/16 08:00 96.6 76 19 131/76 94 05/30/16 06:24 97.4 77 18 144/68 91 05/30/16 00:00 96.7 77 20 138/67 94 05/29/16 22:23 97.2 81 20 140/94 93 05/29/16 20:00 75 05/29/16 16:00 96.4 75 18 141/63 93 05/29/16 12:00 96.9 80 18 129/59 93 I/O 05/29/16 05/29/16 05/29/16 05/30/16 05/30/16 05/30/16 07:00 15:00 23:00 07:00 15:00 23:00 Intake Total 60 ml 480 ml 240 ml Balance 60 ml 480 ml 240 ml Intake Oral 60 ml 480 ml 240 ml # Voids 3 5 2 # Bowel Movements 2 1 Result Diagram: 05/28/16 0820 05/28/16 0820 Imaging Last 72 hours Impressions Knee X-Ray 05/27/16 0000 Signed Impressions: Service Date/Time: Friday, May 27, 2016 04:38 - CONCLUSION: Osteoarthritis and small joint effusion. Jacqueline Rhoades MD Objective Remarks The ROM of the knee is 0 degrees extension to 140 degrees of flexion, without any pain. There is no erythema, induration or effusion. There is no focal tenderness. Assessment & Plan Ortho Post Op Day #: 0 Problem List: (1) Pyogenic bacterial arthritis of right knee Plan: Continue the same treatment. Continue antibiotics per ID. Discussed with Dr. Frey. Assessment and Plan She is to continue oral antibiotics per Dr. Frey. She should be seen for the left knee for routine biennial follow-up next month. I should be able to check the right knee at that time. Maria M Reece MD (Charles) May 30, 2016 11:36 I shall continue to follow this very pleasant woman with you. I have allowed her to be OOB and have ordered PT. Maria M Reece MD (Charles) May 30, 2016 11:36
[2016-05-30 11:42] LABS: HEMATOCRIT 39.4 % (35.0-46.0); MEAN CELL VOLUME 91.7 FL (80.0-100.0); MEAN CORPUSCULAR HGB CONC 33.8 % (32.0-36.0); PLATELET COUNT 229 TH/MM3 (150-450); RED CELL DISTRIBUTION WIDTH 13.4 % (11.6-17.2); REVIEW FLAG FINAL; WHITE BLOOD COUNT 8.7 TH/MM3 (4.0-11.0)
[2016-05-30] MEDS ORDERED: CEPH-460 PO (11:46)
--- NOTE | 2016-05-30 11:59 | HHI.IDPN ---
Note Infectious Disease Note Patient feels well. No distress. R Knee feels okay. No swelling. Pain 1/10. No restriction of movement. Afebrile. Culture has no growth. This is an 86-year-old white female who presented to the emergency department with pain in the right knee. The patient reports that she developed the sudden onset of pain in the right knee two days ago. Initially it was a 7/10 when she first noticed it. She started using a walker to ambulate because she was worried that the pain may cause problems with falling. She subsequently developed worsening pain which she says was about a 10/10 and the knee felt warm and noticed that it was swollen. She also developed chills and felt warm yesterday and she was having nausea as well. She was evaluated in the emergency department and fluid was removed from the knee and the white count in the fluid revealed 186,000 cells with 98% neutrophils. Her white blood cell count is elevated at 14.6. She continues to feel discomfort in the right knee at this time. PAST MEDICAL HISTORY 1. Hypertension. 2. Gastroesophageal reflux disease. 3. Arthritis. 4. Anxiety. 5. Hiatal hernia. 6. Hepatitis. 7. Skin cancer. 8. History of left knee replacement in 2013. 9. Bilateral cataracts. 10. Total abdominal hysterectomy. 11. Right shoulder surgery. ALLERGIES STATINS. ANTIBIOTICS: 1. Piperacillin/tazobactam. 2. Vancomycin. SOCIAL HISTORY The patient is . No tobacco use. No alcohol use. No illicit drugs. FAMILY HISTORY Noncontributory. REVIEW OF SYSTEMS Pertinent as mentioned above, otherwise negative. OBJECTIVE: Vital Signs Date Time Temp Pulse Resp B/P Pulse Ox O2 Delivery O2 Flow Rate FiO2 05/30/16 08:00 96.6 76 19 131/76 94 05/30/16 06:24 97.4 77 18 144/68 91 05/30/16 00:00 96.7 77 20 138/67 94 05/29/16 22:23 97.2 81 20 140/94 93 05/29/16 20:00 75 05/29/16 16:00 96.4 75 18 141/63 93 05/29/16 12:00 96.9 80 18 129/59 93 05/29/16 05/29/16 05/30/16 15:00 23:00 07:00 Intake Total 480 ml 240 ml Balance 480 ml 240 ml Intake Oral 480 ml 240 ml # Voids 5 2 # Bowel Movements 2 1 Laboratory Tests Test 05/30/16 11:30 White Blood Count 8.7 TH/MM3 Red Blood Count 4.30 MIL/MM3 Hemoglobin 13.3 GM/DL Hematocrit 39.4 % Mean Corpuscular Volume 91.7 FL Mean Corpuscular Hemoglobin 31.0 PG Mean Corpuscular Hemoglobin 33.8 % Concent Red Cell Distribution Width 13.4 % Platelet Count 229 TH/MM3 Mean Platelet Volume 8.6 FL PHYSICAL EXAMINATION GENERAL: No acute distress. She is awake, alert and oriented. HEENT: Head is atraumatic. Extraocular movements grossly intact. Nose no bleeding or swelling. Oropharynx no visible lesions. Moist mucosa. NECK: Supple without adenopathy. No swelling. LUNGS: Clear breath sounds. HEART: Regular rate and rhythm. No murmurs, rubs or gallops. ABDOMEN: Bowel sounds present, soft, no tenderness. No hepatosplenomegaly. EXTREMITIES: The right knee has no warmth, swelling or tenderness. No erythema. The left knee has a surgical scar and appears intact and without any signs of infection. No clubbing or cyanosis or edema of the extremities. NEUROLOGIC: Nonfocal. PSYCHIATRIC: Patient calm and cooperative. IMPRESSION 1. Septic arthritis of the left knee. 2. Leukocytosis secondary to #1. 3. Possibly acute kidney disease. Recommendation: Recommendations: Stop Vancomycin and Zosyn. PO Keflex x 10 more days. Nystatin PO for oral thrush. Patient susceptible to oral thrush when on antibiotics. Discussed with Dr. Reece. Script on chart. Can be discharged from my standpoint. Hakeem Frey MD May 30, 2016 11:59
[2016-05-30 12:00] VITALS: BP 158/70; PULSE 77; RESP 19; TEMP 97.1; O2SAT 95
--- NOTE | 2016-05-30 12:54 | HHI.PR ---
Subjective History of Present Illness Feels well/ ready to go home Right knee pain is improving No fever or chills No nausea or vomiting Appetite is improving Denies chest pain Denies shortness of breath Offers no other complaints Significant other at bedside Hospital Day: 2 Review of Systems Constitutional Constitutional: Weakness Musculoskeletal MS: Discomfort/Pain Vitals/Results Intake & Output 05/29/16 05/29/16 05/30/16 15:00 23:00 07:00 Intake Total 480 ml 240 ml Balance 480 ml 240 ml Intake Oral 480 ml 240 ml # Voids 5 2 # Bowel Movements 2 1 Vital Signs Vital Signs Date Time Temp Pulse Resp B/P Pulse Ox O2 Delivery O2 Flow Rate FiO2 05/30/16 12:00 97.1 77 19 158/70 95 05/30/16 08:00 96.6 76 19 131/76 94 05/30/16 06:24 97.4 77 18 144/68 91 05/30/16 00:00 96.7 77 20 138/67 94 05/29/16 22:23 97.2 81 20 140/94 93 05/29/16 20:00 75 05/29/16 16:00 96.4 75 18 141/63 93 CBC/BMP: 05/30/16 1130 05/28/16 0820 Lab Results Laboratory Tests Test 05/30/16 11:30 White Blood Count 8.7 TH/MM3 Red Blood Count 4.30 MIL/MM3 Hemoglobin 13.3 GM/DL Hematocrit 39.4 % Mean Corpuscular Volume 91.7 FL Mean Corpuscular Hemoglobin 31.0 PG Mean Corpuscular Hemoglobin 33.8 % Concent Red Cell Distribution Width 13.4 % Platelet Count 229 TH/MM3 Mean Platelet Volume 8.6 FL Physical Exam General General Appearance: No Acute Distress, Comfortable, Obese Eyes Eye Exam: Pupils Equal, Sclera White, Extraocular Movement Intact Ears & Nose Ears & Nose Exam: Nasal Mucosa [place] Throat Throat Exam: Oral Mucosa [place] & Moist Neck Neck Exam: Neck Supple, Trachea Midline Pulmonary Resp Exam: Clear Bilaterally, Breath Sounds Equal Cardiology CV Exam: Regular, Normal Sinus Rhythm Gastrointestinal/Abdomen GI Exam: Soft, Non-Tender, Bowel Sounds Present Musculoskeletal MS Remarks no swelling right knee, No tenderness, good range of motion Integumentary Skin Exam: Warm, Dry Extremeties Extremities Exam: No Edema, Pedal Pulses Palpable Neurologic Neuro Exam: Alert, Awake, Oriented, Speech Clear, Moving All Extremities Psychiatric Psych Exam: Appropriate Responses Assessment/Plan Assessment/Plan ASSESSMENT AND PLAN 1. s/p Septic arthritis/ Right knee culture negative. 2. early Sepsis on admission 3. Leukocytosis 4. Lactic acidosis 5. Hypertension 6. GERD 7. Anxiety disorder Empiric IV abx Joint fluid c/s remained megative ID & ortho input appreciated IV abx is now changed to po abx cleared for dc. analgesic prn BP control Diabetic diet Accu-Chek's ac and hs to monitor. DVT prophylaxis with Lovenox. medically stable for d/c d/c home today see [facility] see Orders f/u PCP f/u ortho Ellyn Guerrero MD May 30, 2016 12:54
[2016-05-30] MEDS ORDERED: NYSTATIN SUSP 500,000 U/5 ML CUP SWISH-SWAL SCH (13:00)
[2016-05-30] MEDS ORDERED: HYDR-3516 PO (13:02)
--- NOTE | 2016-06-08 10:17 | MD ---
cc: MAYELIN AGRAWAL MD ADMISSION DATE: 05/27/2016 DISCHARGE DATE: 05/30/[address] Mega Hannah FINAL DIAGNOSIS 1. Septic arthritis right knee with possible early sepsis on admission. 2. Hypertension 3. Gastroesophageal reflux disease 4. Anxiety 5. Osteoarthritis 6. 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 Frey, Infectious and Dr. Sabas Ruiz, orthopedic surgery. BRIEF SUMMARY AND HOSPITAL COURSE This is a pleasant 86-year-old female with a prior history of hypertension, osteoarthritis and previous left knee replacement arthroplasty who came to the hospital on 05/27/2016 complaining of pain and swelling in the right knee a couple days duration associated with nausea and fever. Upon arrival, she was noted to be febrile. She has swelling appearing right knee as her white count was elevated. Her knee was aspirated and fluid was sent for analysis. She was started on antibiotics and infectious disease service was consulted. Dr. Frey saw the patient from infectious disease service and supervised the antibiotic treatment. The joint fluid cultures remained negative, however, her joint fluid WBCs were significantly elevated 186,000 with 98% neutrophils and no crystals were seen. Synovial fluid protein was also elevated at 3.5. The patient was given IV vancomycin and Zosyn during her stay in the hospital and she responded to the antibiotic quite effectively and her swelling and pain has improved significantly. Her temperature resolved and white count has normalized. She was seen by Dr. Sabas Reece from orthopedic service as she is showing significant clinical improvement, no surgical intervention was recommended. Today, the patient is feeling significantly better. Pain is almost gone, swelling is improved. She was switched on oral antibiotic by infectious disease and is cleared for discharge. DISCHARGE DISPOSITION The patient is being discharged today in a stable condition. She is going home on oral Keflex for seven more days. DISCHARGE MEDICATIONS See attached reconciliation sheet. FOLLOWUP She is advised to follow up with her primary care physician. She is also advised to follow up with the orthopedic doctor Dr. Sabas Reece in three to four weeks. MD NICOLAS Berg/ABNER /1:06 PM /9:58 AM
== END 2016-05-30 14:36 | disposition home or self-care (01) | DRG 872 ==
LOC: NEPC 04:12 → NEDA 06:13 → NEDH 10:56 → NEDA 19:28 → N05A 22:07
PROVIDERS: ADMIT Specialist; ATTEND Specialist
PROC: 0S9C3ZX Drainage of Right Knee Joint, Percutaneous Approach, Diagnostic (ICD-10-PCS; principal; 2016-05-27)
DX: A41.9 Sepsis, unspecified organism (principal); E87.2 Acidosis; M00.9 Pyogenic arthritis, unspecified; I10 Essential (primary) hypertension; M25.461 Effusion, right knee; F41.9 Anxiety disorder, unspecified; K21.9 Gastro-esophageal reflux disease without esophagitis; K59.00 Constipation, unspecified; Z85.828 Personal history of other malignant neoplasm of skin; Z88.8 Allergy status to other drugs, medicaments and biological substances
CPT/HCPCS: 20610; 73560; 76937; 80048; 80053; 82948; 83605; 84157; 85025; 85027; 87040; 87070; 87205; 89051; 89060; 96374; 96375; J1650; J2270; J2405; J2543; J3370; J7030; J7050